=== PATIENT | male | born 1960 | race Caucasian/White ===

== ENCOUNTER 2016-09-15 14:18 | Emergency (ER) | payer BC ==
[2016-09-15 14:29] VITALS: BP 148/86
--- NOTE | 2016-09-15 15:39 | UC ---
Back Pain HPI - HPI Summary HPI Summary: 56 yo male with lbp x days has had a 30 yr hx of intermittent LBP has been imaged and had MRIs in past no surgery DDD no bowel or bladder dysfunction hx of RA - History of Current Complaint Chief Complaint: UCBackPain Stated Complaint: LOW BACK PAIN Time Seen by Provider: 09/15/16 15:29 Hx Obtained From: Patient Onset/Duration: Gradual Onset, Lasting Days Timing: Constant Severity Initially: Mild Severity Currently: Severe Pain Intensity: 7 Pain Scale Used: 0-10 Numeric Back Pain: Is Diffuse Character: Aching, Throbbing, Spasmodic, Stiffness Aggravating: Movement, Lifting, Bending Alleviating: Nothing Associated Signs And Symptoms: Positive: Negative Related History: Similar Episode Dx As - DDD/back strain - Allergies/Home Medications Allergies/Adverse Reactions: Allergies Allergy/AdvReac Type Severity Reaction Status Date / Time Penicillins Allergy Rash And Verified 09/15/16 14:24 Itching orange blossum tea Allergy Hives Uncoded 09/15/16 14:24 walnuts Allergy See Comment Uncoded 09/15/16 14:24 PMH/Surg Hx/FS Hx/Imm Hx Previously Healthy: Yes - RA - Surgical History Surgical History: Yes Surgery Procedure, Year, and Place: left hip 2010 - Family History Known Family History: Positive: Cardiac Disease, Hypertension, Diabetes, Other - sister with lupus - Social History Alcohol Use: None Alcohol Amount: none x1 year Substance Use Type: None Smoking Status (MU): Current Every Day Smoker Type: Cigars Amount Used/How Often: 15 cigars/day - Immunization History Most Recent Influenza Vaccination: NONE 2015 Most Recent Tetanus Shot: UNKNOWN Review of Systems Constitutional: Negative Skin: Negative Eyes: Negative ENT: Negative Respiratory: Negative Cardiovascular: Negative Gastrointestinal: Negative Genitourinary: Negative Motor: Negative Neurovascular: Negative Musculoskeletal: Myalgia Neurological: Negative Psychological: Negative All Other Systems Reviewed And Are Negative: Yes Physical Exam Triage Information Reviewed: Yes Appearance: Well-Appearing, No Pain Distress, Well-Nourished Vital Signs: Initial Vital Signs Temp 97.4 F 09/15/16 14:24 Pulse 85 09/15/16 14:24 Resp 16 09/15/16 14:24 BP 148/86 09/15/16 14:24 Pulse Ox 97 09/15/16 14:24 Vital Signs Reviewed: Yes Eyes: Positive: Conjunctiva Clear ENT: Positive: Hearing grossly normal. Negative: Nasal congestion, Nasal drainage, Trismus, Muffled/hoarse voice Neck: Positive: Supple, Nontender Respiratory: Positive: Lungs clear, Normal breath sounds, No respiratory distress Cardiovascular: Positive: RRR, No Murmur Musculoskeletal: Positive: ROM Intact, No Edema Neurological: Positive: Alert Psychological Exam: Normal Skin Exam: Normal Back Pain Course/Dx - Differential Dx/Diagnosis Provider Diagnoses: lumbar myofascial strain Discharge - Discharge Plan Condition: Stable Disposition: HOME Prescriptions: Cyclobenzaprine TAB* [Flexeril TAB*] 10 mg PO TID PRN #21 tab PRN Reason: Spasms HYDROcodone/ACETAMIN 5-325 MG* [[place] 5-325 TAB*] 1 tab PO Q4H PRN #12 tab MDD 4 PRN Reason: Pain - Severe Naproxen Sodium [Naproxen Sodium 500 MG TAB] 500 mg PO BID PRN #30 tab PRN Reason: Pain Patient Education Materials: Low Back Strain (ED) Referrals: No Primary Care Phys,NOPCP [Primary Care Provider] - Additional Instructions: see your MD mid week if not better you are welcome to return here if unable to see your provider
== END 2016-09-15 15:52 | disposition home or self-care (01) ==
LOC: UCCORT 14:18
DX: S39.012A Strain of muscle, fascia and tendon of lower back, initial encounter (principal); M06.9 Rheumatoid arthritis, unspecified; F17.290 Nicotine dependence, other tobacco product, uncomplicated; Z88.0 Allergy status to penicillin; X58.XXXA Exposure to other specified factors, initial encounter; Y92.9 Unspecified place or not applicable
CPT/HCPCS: 99212; G0463

== ENCOUNTER 2017-01-15 14:43 | Emergency (ER) | payer BC ==
--- NOTE | 2017-01-15 15:07 | UC ---
Respiratory Complaint HPI - HPI Summary HPI Summary: 56 year old male presents with complains of cough, chest congestion and sore throat. - History of Current Complaint Chief Complaint: UCRespiratory Stated Complaint: CONGESTION COUGH Time Seen by Provider: 01/15/17 15:07 Hx Obtained From: Patient Onset/Duration: Sudden Onset Severity Initially: Moderate Severity Currently: Moderate Pain Scale Used: 0-10 Numeric - 5 - Allergies/Home Medications Allergies/Adverse Reactions: Allergies Allergy/AdvReac Type Severity Reaction Status Date / Time Penicillins Allergy Rash And Verified 01/15/17 15:06 Itching orange blossum tea Allergy Hives Uncoded 01/15/17 15:06 walnuts Allergy See Comment Uncoded 01/15/17 15:06 PMH/Surg Hx/FS Hx/Imm Hx Previously Healthy: Yes - Surgical History Surgical History: Yes Surgery Procedure, Year, and Place: left hip replacement 2010 - Family History Known Family History: Positive: Cardiac Disease, Hypertension, Diabetes, Other - sister with lupus - Social History Alcohol Use: None Alcohol Amount: none x1 year Substance Use Type: None Smoking Status (MU): Current Every Day Smoker Type: Cigars Amount Used/How Often: 10 cigars/day Length of Time of Smoking/Using Tobacco: 25 Have You Smoked in the Last Year: Yes Household Exposure Type: Cigarettes - Immunization History Most Recent Influenza Vaccination: NONE 2016 Most Recent Tetanus Shot: UNKNOWN Review of Systems Constitutional: Negative Skin: Negative Eyes: Negative ENT: Negative Respiratory: Cough Cardiovascular: Negative Gastrointestinal: Negative Genitourinary: Negative Motor: Negative Neurovascular: Negative Musculoskeletal: Negative Neurological: Negative Psychological: Negative All Other Systems Reviewed And Are Negative: Yes Physical Exam Triage Information Reviewed: Yes Vital Signs Reviewed: Yes Eye Exam: Normal ENT: Positive: Pharyngeal erythema, Nasal congestion, Nasal drainage, Sinus tenderness Dental Exam: Normal Neck exam: Normal Neck: Positive: 1 Respiratory: Positive: Rhonchi, Wheezing Cardiovascular Exam: Normal Abdominal Exam: Normal Musculoskeletal Exam: Normal Neurological Exam: Normal Psychological Exam: Normal Skin Exam: Normal Respiratory Course/Dx - Differential Dx/Diagnosis Provider Diagnoses: chest congestion. cough. sore throat Discharge - Discharge Plan Condition: Stable Disposition: HOME Prescriptions: Albuterol HFA INHALER* [Ventolin HFA Inhaler*] 1 puff INH Q6H PRN #1 mdi PRN Reason: Cough Azithromyxin SASCHA (NF) [Z-Sascha (Zithromax) 250 mg tabs #6] 2 tab PO .TODAY, THEN 1 DAILY #6 tab Guaifenesin-Codeine [Cheratussin AC] 1 teasp PO Q8H PRN #120 ml MDD 15 ml PRN Reason: Cough Methylprednisolone [Medrol Dosepak 4 MG*] 4 mg PO .SEE SASCHA INSTRUCTION #21 tab Patient Education Materials: Acute Cough (ED) Referrals: No Primary Care Phys,NOPCP [Primary Care Provider] -
[2017-01-15 15:12] VITALS: BP 124/73
== END 2017-01-15 15:24 | disposition home or self-care (01) ==
LOC: UCCORT 14:43
DX: R09.89 Other specified symptoms and signs involving the circulatory and respiratory systems (principal); R05 Cough; J02.9 Acute pharyngitis, unspecified; Z96.642 Presence of left artificial hip joint; Z88.0 Allergy status to penicillin; F17.210 Nicotine dependence, cigarettes, uncomplicated
CPT/HCPCS: 99212; G0463

== ENCOUNTER 2018-07-04 08:53 | Emergency (ER) | payer BC ==
--- NOTE | 2018-07-04 09:45 | UC ---
Lower Extremity/Ankle HPI - HPI Summary HPI Summary: 58-year-old male comes in with a chief complaint of right foot pain. Pain started 2 days ago in the right first MTP. This reminds the patient of gout. He has a history of gout. Pain is worse with any ambulation or palpation. Pain is less if he elevates the foot. No fevers or chills. Feels well otherwise. Patient used to be on allopurinol to avoid case of gout but then it' s been several years since he had any gout and therefore is not on the allopurinol any more. - History of Current Complaint Stated Complaint: RIGHT FOOT CONCERN Time Seen by Provider: 07/04/18 09:31 - Allergies/Home Medications Allergies/Adverse Reactions: Allergies Allergy/AdvReac Type Severity Reaction Status Date / Time Penicillins Allergy Itchy Rash Verified 07/04/18 09:43 walnut Allergy "Blisters Verified 07/04/18 09:43 in my mouth, tongue splits open" orange blossum tea Allergy Hives Uncoded 07/04/18 09:43 Home Medications: Home Medications Omeprazole CAP (NF) [Prilosec CAP* 20 MG] 20 mg PO DAILY PRN 07/04/18 [History Confirmed 07/04/18] PMH/Surg Hx/FS Hx/Imm Hx Previously Healthy: Yes - GOUT GI/ History: Gastroesophageal Reflux - Surgical History Surgical History: Yes Surgery Procedure, Year, and Place: left hip replacement 2010 - Family History Known Family History: Positive: Cardiac Disease, Hypertension, Diabetes, Other - sister with lupus - Social History Alcohol Use: None Alcohol Amount: none x1 year Substance Use Type: None Smoking Status (MU): Current Every Day Smoker Type: Cigars Amount Used/How Often: 10 cigars/day Length of Time of Smoking/Using Tobacco: 25 Have You Smoked in the Last Year: Yes Household Exposure Type: Cigarettes - Immunization History Most Recent Influenza Vaccination: NONE 2015 Most Recent Tetanus Shot: UNKNOWN Review of Systems All Other Systems Reviewed And Are Negative: Yes Constitutional: Positive: Negative Skin: Positive: Other - erythema rt foot Eyes: Positive: Negative ENT: Positive: Negative Respiratory: Positive: Negative Cardiovascular: Positive: Negative Gastrointestinal: Positive: Negative Motor: Positive: Negative Neurovascular: Positive: Negative Musculoskeletal: Positive: Other: - see hpi Neurological: Positive: Negative Psychological: Positive: Negative Is Patient Immunocompromised?: No Physical Exam Triage Information Reviewed: Yes Appearance: Well-Appearing, No Pain Distress, Well-Nourished Vital Signs Reviewed: Yes Eye Exam: Normal Eyes: Positive: Conjunctiva Clear Neck: Positive: Supple Musculoskeletal: Positive: Other: - The right foot is swollen and erythematous the worst area is over the first MTP. It is tender to palpation. Normal capillary refill. Slight decreased sensation. Ankle is nontender full range of motion. Positive dorsalis pedis pulse. Neurological Exam: Normal Neurological: Positive: Alert, Muscle Tone Normal Psychological Exam: Normal Psychological: Positive: Age Appropriate Behavior Skin: Positive: Other - erythema rt foot Lower Extremity Course/Dx - Course Course Of Treatment: Patient reports this feels like his typical gout. Denies any trauma. Declines any x-rays at this time. He reports that in the past he's been checked for uric acid levels and they're always normal. 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 Patient will be following his primary care doctor reevaluate sooner if worse. - Differential Dx/Diagnosis Provider Diagnosis: Gout of right foot Discharge - Sign-Out/Discharge Documenting (check all that apply): Patient Departure All imaging exams completed and their final reports reviewed: No Studies - Discharge Plan Condition: Stable Disposition: HOME Prescriptions: Colchicine [Mitigare] 0.6 mg PO SEE INSTRUCTIONS PRN #20 cap PRN Reason: Pain Patient Education Materials: Gout (ED) Referrals: Jayjay QUIÑONEZ,David Way [Primary Care Provider] - Additional Instructions: FOLLOW UP WITH YOUR DOCTOR. GET RECHECKED SOONER IF YOUR CONDITION WORSENS OR ANY QUESTIONS OR CONCERNS. - Billing Disposition and Condition Condition: STABLE Disposition: Home
[2018-07-04 09:48] VITALS: BP 150/95
== END 2018-07-04 09:56 | disposition home or self-care (01) ==
LOC: UCCORT 08:53
DX: M10.9 Gout, unspecified (principal); Z88.0 Allergy status to penicillin; K21.9 Gastro-esophageal reflux disease without esophagitis; F17.210 Nicotine dependence, cigarettes, uncomplicated
CPT/HCPCS: 99212; G0463

== ENCOUNTER 2019-03-23 20:17 | Emergency (ER) | payer BC ==
[2019-03-23 20:44] VITALS: BP 150/90
--- NOTE | 2019-03-23 21:22 | UC ---
Hand/Wrist HPI - HPI Summary HPI Summary: Patient is a 58yo male presenting with redness, pain, and swelling of L third finger x4 days. Patient denies trauma or injury to the finger. States swelling and pain have gradually worsened. States redness spread today. Notes decreased ROM d/t pain and swelling. Denies n/v. Denies fever and chills. Denies anything like this in the past. Does have a h/o gout but states never in his finger like this. - History Of Current Complaint Chief Complaint: UCSkin Stated Complaint: PAIN AND SWELLING LEFT HAND Hx Obtained From: Patient Pain Intensity: 7 Pain Scale Used: 0-10 Numeric - Allergies/Home Medications Allergies/Adverse Reactions: Allergies Allergy/AdvReac Type Severity Reaction Status Date / Time Penicillins Allergy Itchy Rash Verified 03/23/19 20:44 walnut Allergy "Blisters Verified 03/23/19 20:44 in my mouth, tongue splits open" orange blossum tea Allergy Hives Uncoded 03/23/19 20:44 Home Medications: Home Medications Albuterol HFA INHALER* [Ventolin HFA Inhaler*] 2 puff INH BID 03/23/19 [History Confirmed 03/23/19] Allopurinol TAB* [Zyloprim 100 MG TAB*] 100 mg PO DAILY 03/23/19 [History Confirmed 03/23/19] Cyclobenzaprine TAB* [Flexeril 10 MG TAB*] 5 mg PO TID PRN 03/23/19 [History Confirmed 03/23/19] Gabapentin CAP(*) [Neurontin 300 CAP(*)] 300 mg PO DAILY PRN 03/23/19 [History Confirmed 03/23/19] Ibuprofen TAB* [Advil TAB*] 400 mg PO BID 03/23/19 [History Confirmed 03/23/19] Magnesium Lactate 140 mg DAILY PRN 03/23/19 [History Confirmed 03/23/19] [place]cadine Grape Seed 1,000 tab BID 03/23/19 [History Confirmed 03/23/19] Pentoxifylline CR TAB* [TRENtal CR TAB*] 200 mg PO DAILY PRN 03/23/19 [History Confirmed 03/23/19] PMH/Surg Hx/FS Hx/Imm Hx GI/ History: Gastroesophageal Reflux - Surgical History Surgical History: Yes Surgery Procedure, Year, and Place: left hip replacement 2010 - Family History Known Family History: Positive: Cardiac Disease, Hypertension, Diabetes, Other - sister with lupus - Social History Alcohol Use: Occasionally Alcohol Amount: none x1 year Substance Use Type: None Smoking Status (MU): Current Every Day Smoker Type: eCigarettes Amount Used/How Often: 10 cigars/day Length of Time of Smoking/Using Tobacco: 25 Have You Smoked in the Last Year: Yes Household Exposure Type: Cigarettes - Immunization History Most Recent Influenza Vaccination: NONE 2015 Most Recent Tetanus Shot: UNKNOWN Review of Systems All Other Systems Reviewed And Are Negative: Yes Constitutional: Positive: Negative. Negative: Fever, Chills Respiratory: Positive: Negative Cardiovascular: Positive: Negative Gastrointestinal: Positive: Negative. Negative: Vomiting, Nausea Neurovascular: Positive: Negative Musculoskeletal: Positive: Arthralgia - L third finger, Decreased ROM - L third finger, Edema - L third finger Neurological: Negative: Paresthesia, Numbness Physical Exam - Summary Physical Exam Summary: Vital Signs Reviewed: Yes A+Ox3, no distress Eyes: Conjunctiva Clear, HADLEY. EOM intact and full ENT: Hearing grossly normal TM x 2 clear, moist, uvula midline, no exudate, no erythema Neck: Positive: Supple Respiratory: Positive: No respiratory distress, No accessory muscle use + CTA throughout no w/r Cardiovascular: RRR nl s1, s2 no m/r CBT <2 sec abd soft + BS nt/nd no guarding, no distension Musculoskeletal Exam: GARISA x 4 without difficulty, +pain with palpation of PIP joint of L third finger, decreased flexion d/t pain, sensation grossly intact, significant edema of PIP joint as well Neurological: Positive: Alert, + sensation throughout Psychological: Positive: age appropriate behavior Skin: Positive: redness and warmth over dorsal L third finger PIP joint with red streaking extending proximally to dorsum of hand, no fluctuance, no drainage , no bleeding Vital Signs: Initial Vital Signs Temp 97.6 F 03/23/19 20:38 Pulse 68 03/23/19 20:38 Resp 16 03/23/19 20:38 BP 150/90 03/23/19 20:38 Pulse Ox 99 03/23/19 20:38 Diagnostics - Radiology L hand Radiology Interpretation Completed By: ED Physician Summary of Radiographic Findings: no acute process Hand/Wrist Course/Dx - Course Course Of Treatment: I treated patient with shot of rocephin and keflex TID for which he received first dose here as well. Informed patient that the final read of the radiograph would be obtained in the morning that he would be notified with any abnormalities. I instructed the patient to follow up with his PCP or Dr. Reagan as soon as possible tomorrow for further evaluation. I discussed concern of cellulitis versus septic arthritis with patient and stressed the importance of follow-up. Patient vital signs normal and in no pain distress. Patient voiced understanding and agreed with the treatment plan. - Differential Dx/Diagnosis Provider Diagnosis: Cellulitis of left hand Discharge ED - Sign-Out/Discharge Documenting (check all that apply): Patient Departure All imaging exams completed and their final reports reviewed: No - Discharge Plan Condition: Stable Disposition: HOME Prescriptions: Cephalexin CAP* [Keflex CAP*] 500 mg PO TID #19 cap Patient Education Materials: Cellulitis (ED), Swollen Joint (ED) Referrals: Jayjay QUIÑONEZ,David Way [Primary Care Provider] - As Soon As Possible Noemi Reagan MD [Medical Doctor] - As Soon As Possible Additional Instructions: As discussed, your radiograph was reviewed by the provider that treated you tonight. It will be read by a radiologist tomorrow morning. If there is a finding other than that discussed with you today, you will receive a call from a care provider. You received a shot of antibiotic to treat cellulitis. You also received the first dose of the oral antibiotic. Take the second dose at 6am. 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 It is very important that you follow up TOMORROW with the orthopedic referral listed below or with your primary care provider. Go to the emergency room with any new or worsening symptoms. - Billing Disposition and Condition Condition: STABLE Disposition: Home - Attestation Statements Provider Attestation: This patient was not seen by me. I was available for consult. Chart reviewed. NEW
[2019-03-23] MEDS ORDERED: cefTRIAXone VIAL(*) 1,000 MG VIAL IM ONE (21:33)
[2019-03-23] MEDS ORDERED: Lidocaine 1% MPF ** 5 ML VIAL IM ONE (21:34)
[2019-03-23] MEDS ORDERED: Cephalexin CAP* 500 MG PO ONE (21:41)
--- NOTE | 2019-03-24 08:58 | UC ---
- Progress Note Progress Note: Reviewed report of hand xray, advising no definitive evidence of osteomyelitis, but advising further imaging if index of suspicion is high. Per discharge paper work, patient has orthopedic referral in place and was advised to call today for evaluation. No change in plan. Course/Dx - Course Course Of Treatment: Antbiotics initiated. Referral to orthopedics - Diagnoses Provider Diagnoses: Cellulitis of left hand Discharge ED - Sign-Out/Discharge Documenting (check all that apply): Patient Departure All imaging exams completed and their final reports reviewed: Yes - Discharge Plan Condition: Stable Disposition: HOME Prescriptions: Cephalexin CAP* [Keflex CAP*] 500 mg PO TID #19 cap Patient Education Materials: Cellulitis (ED), Swollen Joint (ED) Referrals: Jayjay QUIÑONEZ,David Way [Primary Care Provider] - As Soon As Possible Noemi Reagan MD [Medical Doctor] - As Soon As Possible Additional Instructions: As discussed, your radiograph was reviewed by the provider that treated you tonight. It will be read by a radiologist tomorrow morning. If there is a finding other than that discussed with you today, you will receive a call from a care provider. You received a shot of antibiotic to treat cellulitis. You also received the first dose of the oral antibiotic. Take the second dose at 6am. 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 It is very important that you follow up TOMORROW with the orthopedic referral listed below or with your primary care provider. Go to the emergency room with any new or worsening symptoms. - Billing Disposition and Condition Condition: STABLE Disposition: Home
== END 2019-03-23 21:59 | disposition home or self-care (01) ==
LOC: UCCORT 20:17
DX: L03.114 Cellulitis of left upper limb (principal); Z96.642 Presence of left artificial hip joint; F17.290 Nicotine dependence, other tobacco product, uncomplicated; Z88.0 Allergy status to penicillin; Z91.018 Allergy to other foods
CPT/HCPCS: 96372; 99212; A9270-GY; G0463; J0696